=== PATIENT | male | born 1985 | race African-American/Black ===

== ENCOUNTER 2025-02-15 04:09 | Inpatient (IN) | payer MEDICAID ==
[~2025-02-15] VITALS: Ht 182.9 cm; Wt 78.0 kg
[2025-02-15] MEDS: ONDANSETRON HCL 4MG/2ML INJ IV STA (05:20)
[2025-02-15] MEDS: SODIUM CHLORIDE 0.9% 1,000 ML IV ONE (05:25)
[2025-02-15 06:43] LABS: BASOPHILS % 0.9 % (0.0-2.0); EOSINOPHILS % 2.1 % (0.0-5.0); HEMATOCRIT. 37.0 % (42.0-52.0); HEMOGLOBIN. 12.0 g/dL (14.0-18.0); LYMPHOCYTES % 43.0 % (20.0-50.0); MEAN PLATELET VOLUME 7.9 fl (7.4-10.4); MONOCYTES % 7.1 % (2.0-8.0); NEUTROPHILS % 46.9 % (40.0-76.0); PLATELET 227 x1000/uL (130-400); RED BLOOD CELL COUNT 4.32 mill/uL (4.7-6.1); RED CELL DISTRIBUTION WIDTH 15.4 % (11.6-14.6)
[2025-02-15 07:12] LABS: CREATININE 1.1 mg/dL (0.6-1.3)
[2025-02-15 07:13] LABS: ETHANOL BLOOD < 10 mg/dL (<10); UREA NITROGEN BLOOD 9 mg/dL (9-23)
[2025-02-15] MEDS ORDERED: IPRATROPIUM/ALBUTEROL 0.5-3(2.5)MG/3ML NEB HHN PRN (10:30)
[2025-02-15] MEDS ORDERED: ACETAMINOPHEN 325MG TABLET PO PRN ×2 (10:30)
[2025-02-15] MEDS: PANTOPRAZOLE SODIUM 40 MG/VIAL IV SCH (10:30)
[2025-02-15] MEDS ORDERED: CLONIDINE 0.1MG TABLET PO PRN (10:30)
[2025-02-15] MEDS ORDERED: ONDANSETRON HCL 4MG/2ML INJ IV PRN (10:30)
[2025-02-15] MEDS: ENOXAPARIN 40MG/0.4ML SYR SUBCUT SCH (10:31)
[2025-02-15] MEDS ORDERED: HYDRALAZINE 20MG/ML VIAL IV PRN (11:00)
[2025-02-15 11:26] LABS: PHOSPHORUS 3.7 mg/dL (2.5-4.9)
[2025-02-15 13:50] VITALS: BP 117/72; PULSE 62; RESP 18; TEMP 36.6
[2025-02-15 20:00] VITALS: BP 100/47; PULSE 79; RESP 18; TEMP 36.8; O2SAT 100
[2025-02-15] MEDS: SODIUM CHLORIDE 0.9% 1,000 ML IV SCH (21:52)
[2025-02-16] VITALS: BP 102/42; PULSE 88; RESP 18; TEMP 36.8; O2SAT 98
[2025-02-16 04:00] VITALS: BP 105/64; PULSE 73; RESP 17; TEMP 36.4; O2SAT 100
[2025-02-16 20:00] VITALS: BP 102/62; PULSE 84; RESP 18; TEMP 36.3; O2SAT 100
[2025-02-17] VITALS (7 sets, daily range): BP systolic 98–110; BP diastolic 55–70; PULSE 74–91; RESP 17–19; TEMP 36.2–36.8; O2SAT 97–100
[2025-02-18] MEDS ORDERED: TRAZODONE HCL 50MG TABLET PO PRN (00:45)
[2025-02-18 08:00] VITALS: BP 95/53; PULSE 68; RESP 18; TEMP 36.6; O2SAT 100
[2025-02-18 12:00] VITALS: BP 107/56; PULSE 76; RESP 20; TEMP 36.5; O2SAT 100
[2025-02-18 14:54] VITALS: BP 124/73; PULSE 98; TEMP 98; O2SAT 100
== END 2025-02-18 15:55 | disposition home or self-care (01) | DRG 812 ==
LOC: ER 04:09 → EDBD 04:09 → 5WST 09:49 → EDBEDREQTM 10:01 → EDBEDREQ 10:01 → ENRESERV 10:21
PROVIDERS: ADMIT Internal Medicine; ATTEND Internal Medicine
DX: T43.651A Poisoning by methamphetamines accidental (unintentional), initial encounter (principal); G92.8 Other toxic encephalopathy; F15.10 Other stimulant abuse, uncomplicated; Y92.89 Other specified places as the place of occurrence of the external cause; I51.7 Cardiomegaly
CPT/HCPCS: 36415; 71045; 80048; 80307; 80320; 80329; 82550; 83605; 83735; 83880; 84100; 84145; 85025; 93005; 99285; A4606; J1650; J2405; J2470; J7030; G0480